=== PATIENT | female | born 1945 | race Two or more races ===

== ENCOUNTER 2022-07-01 15:20 | Inpatient (IN) | payer MEDICAID ==
[~2022-07-01] VITALS: Ht 165.1 cm; Wt 101.8 kg
[~2022-07-01 15:20] MED LIST: ETOMIDATE 2MG/ML 10ML VIAL IV ONE; SUCCINYLCHOLINE CHLORIDE 200MG/10ML IV ONE
[2022-07-01] MEDS ORDERED: SODIUM CHLORIDE 0.9% 1,000 ML IV ONE (15:45)
[2022-07-01 15:53] LABS: BASOPHILS % 0.3 % (0.0-2.0); EOSINOPHILS % 0.8 % (0.0-5.0); HEMATOCRIT. 37.8 % (36.0-48.0); HEMOGLOBIN. 12.2 g/dL (12.0-16.0); LYMPHOCYTES % 12.4 % (20.0-50.0); MEAN CORPUSCULAR VOLUME 99.1 fL (81.0-99.0); MEAN PLATELET VOLUME 8.5 fl (7.4-10.4); NEUTROPHILS % 74.5 % (40.0-76.0); PLATELET 163 x1000/uL (130-400); RED BLOOD CELL COUNT 3.82 mill/uL (4.2-5.4); RED CELL DISTRIBUTION WIDTH 14.4 % (11.6-14.6)
[2022-07-01 16:10] LABS: CHLORIDE 95 mEq/L (98-107)
[2022-07-01] MEDS ORDERED: MIDAZOLAM HCL 100 MG in DEXT 5% WATER 80 ML IV ONE (17:00)
[2022-07-01] MEDS ORDERED: VANCOMYCIN 1G PREMIX 200 ML IV ONE (17:00)
[2022-07-01] MEDS ORDERED: PIPERACILLIN/TAZ 3.375G PREMIX 50 ML IV ONE (17:00)
[2022-07-01] MEDS ORDERED: ONDANSETRON HCL 4MG/2ML INJ IV ONE ×2 (17:00→18:00)
[2022-07-01] MEDS ORDERED: SUCCINYLCHOLINE CHLORIDE 200MG/10ML IV ONE (17:00)
[2022-07-01] MEDS ORDERED: ETOMIDATE 2MG/ML 10ML VIAL IV ONE (17:00)
[2022-07-01] MEDS ORDERED: MIDAZOLAM HCL 2 MG/2 ML VIAL IV ONE (17:00)
[2022-07-01] MEDS ORDERED: MIDAZOLAM HCL 100 MG in SODIUM CHLORIDE 0.9% 100 ML IV PRN (17:15)
[2022-07-01] MEDS ORDERED: MIDAZOLAM HCL 100 MG in DEXT 5% WATER 80 ML IV PRN (17:15)
[2022-07-01] MEDS ORDERED: PANTOPRAZOLE SODIUM 40 MG/VIAL IV ONE (18:00)
[2022-07-01 18:06] LABS: BG BASE EXCESS 12.5 mmol/L (-2.0-2.0); BG CARBOXYHEMOGLOBIN 1.1 % (0.5-1.5); BG DEOXYHEMOGLOBIN 1.2 % (0.0-5.0); BG FRACTION INSPIRED OXYGEN 100; BG HCO3 ACT 40.6 mmol/L (22.0-26.0); BG METHEMOGLOBIN 0.4 % (0.0-1.5); BG OXYGEN SATURATION 98.8 % (92.0-98.5); BG OXYHEMOGLOBIN 97.3 % (94.0-97.0); BG PCO2 71.4 mmHg (35.0-45.0); BG PH 7.373 (7.350-7.450); BG SAMPLE SITE RIGHT RADIAL; BG TOTAL HEMOGLOBIN 12.3 g/dL (12.0-18.0); BG VENT MODE VENT - AC
[2022-07-01] MEDS ORDERED: ONDANSETRON HCL 4MG/2ML INJ IV PRN (19:00)
[2022-07-01] MEDS ORDERED: IPRATROPIUM/ALBUTEROL 0.5-3(2.5)MG/3ML NEB HHN PRN (19:00)
[2022-07-01] MEDS ORDERED: NOREPINEPHRINE 8 MG in DEXTROSE 5% WATER 250 ML IV PRN (19:00)
[2022-07-01] MEDS ORDERED: DIPHENHYDRAMINE 50MG/ML VIAL IV PRN (19:00)
[2022-07-01] MEDS ORDERED: NOREPINEPHRINE 8MG/250ML PMX 250 ML IV ONE (19:00)
[2022-07-01] MEDS: SODIUM CHLORIDE 0.9% 1,000 ML IV SCH ×2 (19:26→23:31)
[2022-07-01] MEDS ORDERED: FENTANYL 2500MCG/250ML PMX 250 ML IV ONE (20:30)
[2022-07-01] MEDS ORDERED: VANCOMYCIN 1G PREMIX 200 ML IV SCH (22:00)
[2022-07-01] MEDS ORDERED: FENTANYL 2500MCG/250ML PMX 250 ML IV NR (23:45)
[2022-07-02] VITALS (44 sets, daily range): BP systolic 85–146; BP diastolic 39–67
[2022-07-02] MEDS ORDERED: PIPERACILLIN/TAZOBACTAM 3.375 G in DEXTROSE 5% WATER 50 ML IV SCH ×2
[2022-07-02 06:00] LABS: BASOPHILS % 0.1 % (0.0-2.0); EOSINOPHILS % 0.4 % (0.0-5.0); HEMATOCRIT. 35.3 % (36.0-48.0); HEMOGLOBIN. 11.4 g/dL (12.0-16.0); LYMPHOCYTES % 9.2 % (20.0-50.0); MEAN CORPUSCULAR HEMOGLOBIN 31.2 pg (28.0-32.0); MEAN CORPUSCULAR VOLUME 96.9 fL (81.0-99.0); MEAN PLATELET VOLUME 9.2 fl (7.4-10.4); MONOCYTES % 11.4 % (2.0-8.0); NEUTROPHILS % 78.9 % (40.0-76.0); PLATELET 181 x1000/uL (130-400); RED BLOOD CELL COUNT 3.64 mill/uL (4.2-5.4); RED CELL DISTRIBUTION WIDTH 13.7 % (11.6-14.6)
[2022-07-02 06:14] LABS: CHLORIDE 96 mEq/L (98-107)
[2022-07-02] MEDS ORDERED: PIPERACILLIN/TAZ 3.375G PREMIX 50 ML IV SCH (07:28)
[2022-07-02 09:02] LABS: BG BASE EXCESS 10.7 mmol/L (-2.0-2.0); BG CARBOXYHEMOGLOBIN 0.4 % (0.5-1.5); BG DEOXYHEMOGLOBIN 5.3 % (0.0-5.0); BG HCO3 ACT 34.9 mmol/L (22.0-26.0); BG METHEMOGLOBIN 0.3 % (0.0-1.5); BG OXYGEN SATURATION 94.7 % (92.0-98.5); BG PCO2 44.3 mmHg (35.0-45.0); BG PH 7.514 (7.350-7.450); BG PO2 60.8 mmHg (75.0-100.0); BG SAMPLE SITE RIGHT RADIAL; BG TOTAL HEMOGLOBIN 12.5 g/dL (12.0-18.0); BG VENT MODE VENT - AC
[2022-07-02 09:28] LABS: CLARITY URINE TURBID (CLEAR); COLOR URINE DARK YELLOW (YELLOW); KETONES URINE NEGATIVE (NEGATIVE); LEUKOCYTE ESTERASE URINE 1+ (NEGATIVE); NITRITE URINE NEGATIVE (NEGATIVE); OCCULT BLOOD URINE 3+ (NEGATIVE); PH URINE 5.5 (4.5-8.0); PROTEIN URINE 2+ (NEGATIVE); SPECIFIC GRAVITY URINE 1.022 (1.005-1.030)
[2022-07-02] MEDS ORDERED: FENTANYL CITRATE/PF 2,500 MCG in SODIUM CHLORIDE 0.9% 200 ML IV PRN (11:45)
[2022-07-02] MEDS ORDERED: MIDAZOLAM 100MG/100ML PMX 100 ML IV PRN (11:45)
[2022-07-02] MEDS ORDERED: NOREPINEPHRINE 8MG/250ML PMX 250 ML IV PRN (12:30)
[2022-07-02] MEDS: MIDAZOLAM HCL 100 MG in SODIUM CHLORIDE 0.9% 100 ML IV PRN (12:35)
[2022-07-02] MEDS ORDERED: NOREPINEPHRINE 8 MG in DEXTROSE 5% WATER 250 ML IV PRN (13:00)
[2022-07-02] MEDS: PIPERACILLIN/TAZOBACTAM 3.375G in DEXT 5% WATER 50ML IV SCH ×2 (13:38→22:44)
[2022-07-02] MEDS: AZITHROMYCIN 500 MG in DEXT 5% WATER 250 ML IV SCH (13:39)
[2022-07-02] MEDS: ACETYLCYSTEINE 200MG/ML 20% VIAL 4ML INH SCH (13:55)
[2022-07-02] MEDS: IPRATROPIUM/ALBUTEROL 0.5-3(2.5)MG/3ML NEB HHN SCH ×2 (13:55→20:12)
[2022-07-02] MEDS: SODIUM CHLORIDE 3% FOR INH 4ML UD NEB INH SCH (13:55)
[2022-07-02] MEDS: SODIUM CHLORIDE 0.9% 1,000 ML IV SCH (16:33)
[2022-07-02 19:04] LABS: TOTAL IRON BINDING CAPACITY 232 ug/dL (250-450)
[2022-07-02 19:11] LABS: T4 FREE 1.22 ng/dL (0.76-1.46)
[2022-07-02 19:26] LABS: FERRITIN 403 ng/mL (10-291)
[2022-07-02 19:35] LABS: VITAMIN B12 SERUM > 2000.0 pg/mL (211-911)
[2022-07-02] MEDS: PANTOPRAZOLE SODIUM 40 MG/VIAL IV SCH (20:30)
[2022-07-02] MEDS ORDERED: VANCOMYCIN 1G PREMIX 200 ML IV SCH (22:00)
[2022-07-03] VITALS (98 sets, daily range): BP systolic 82–140; BP diastolic 33–80
[2022-07-03] MEDS: IPRATROPIUM/ALBUTEROL 0.5-3(2.5)MG/3ML NEB HHN SCH ×3 (01:54→20:16)
[2022-07-03] MEDS: ACETYLCYSTEINE 200MG/ML 20% VIAL 4ML INH SCH ×2 (01:54→08:36)
[2022-07-03] MEDS: MIDAZOLAM HCL 100 MG in SODIUM CHLORIDE 0.9% 100 ML IV PRN (03:02)
[2022-07-03] MEDS: SODIUM CHLORIDE 0.9% 1,000 ML IV SCH (03:06)
[2022-07-03 05:16] LABS: BASOPHILS % 0.2 % (0.0-2.0); EOSINOPHILS % 0.9 % (0.0-5.0); HEMATOCRIT. 30.8 % (36.0-48.0); HEMOGLOBIN. 10.2 g/dL (12.0-16.0); LYMPHOCYTES % 18.7 % (20.0-50.0); MEAN CORPUSCULAR HEMOGLOBIN 31.8 pg (28.0-32.0); MEAN CORPUSCULAR VOLUME 95.6 fL (81.0-99.0); MEAN PLATELET VOLUME 8.8 fl (7.4-10.4); MONOCYTES % 9.4 % (2.0-8.0); NEUTROPHILS % 70.8 % (40.0-76.0); PLATELET 174 x1000/uL (130-400); RED BLOOD CELL COUNT 3.23 mill/uL (4.2-5.4); RED CELL DISTRIBUTION WIDTH 14.4 % (11.6-14.6)
[2022-07-03 05:35] LABS: INR 1.1; PROTHROMBIN TIME 11.4 sec (9.6-11.0)
[2022-07-03] MEDS: PIPERACILLIN/TAZOBACTAM 3.375G in DEXT 5% WATER 50ML IV SCH ×3 (05:42→21:00)
[2022-07-03] MEDS: PANTOPRAZOLE SODIUM 40 MG/VIAL IV SCH ×2 (08:15→21:00)
[2022-07-03] MEDS ORDERED: MULT-1116 PO (08:37)
[2022-07-03] MEDS ORDERED: FURO20TA4 MT (08:37)
[2022-07-03] MEDS ORDERED: GABA-529 PO (08:37)
[2022-07-03] MEDS ORDERED: NYST15PO4 TP (08:38)
[2022-07-03] MEDS ORDERED: POLY17PO43 MT (08:40)
[2022-07-03] MEDS ORDERED: TIOT18CA3 IH (08:40)
[2022-07-03 08:52] LABS: BG BASE EXCESS 5.2 mmol/L (-2.0-2.0); BG CARBOXYHEMOGLOBIN 0.2 % (0.5-1.5); BG DEOXYHEMOGLOBIN 5.7 % (0.0-5.0); BG FRACTION INSPIRED OXYGEN 70; BG HCO3 ACT 29.1 mmol/L (22.0-26.0); BG METHEMOGLOBIN 0.3 % (0.0-1.5); BG OXYGEN SATURATION 94.3 % (92.0-98.5); BG OXYHEMOGLOBIN 93.8 % (94.0-97.0); BG PCO2 40.1 mmHg (35.0-45.0); BG PH 7.479 (7.350-7.450); BG PO2 64.9 mmHg (75.0-100.0); BG SAMPLE SITE RIGHT RADIAL; BG TOTAL HEMOGLOBIN 10.8 g/dL (12.0-18.0); BG VENT MODE VENT - AC
[2022-07-03] MEDS: FUROSEMIDE 20MG/2ML VIAL IVP SCH (10:24)
[2022-07-03] MEDS: DEXT 5%/0.9% NACL 1,000 ML IV SCH ×2 (10:25→20:23)
[2022-07-03] MEDS: AZITHROMYCIN 500 MG in DEXT 5% WATER 250 ML IV SCH (12:03)
[2022-07-03] MEDS: FENTANYL 2500MCG/250ML PMX 250 ML IV PRN (12:05)
[2022-07-03] MEDS ORDERED: ROCURONIUM BROMIDE 10MG/ML VIAL 5ML IV ONE (12:19)
[2022-07-03] MEDS ORDERED: MIDAZOLAM HCL 5 MG/5 ML VIAL ONE (12:19)
[2022-07-03] MEDS ORDERED: PROPOFOL 200MG/20ML VIAL IV ONE (12:19)
[2022-07-03 13:04] LABS: HEMATOCRIT 30.1 % (36.0-48.0)
[2022-07-04] VITALS (101 sets, daily range): BP systolic 64–163; BP diastolic 24–112
[2022-07-04] MEDS: IPRATROPIUM/ALBUTEROL 0.5-3(2.5)MG/3ML NEB HHN SCH ×4 (00:16→21:04)
[2022-07-04] MEDS: ACETYLCYSTEINE 200MG/ML 20% VIAL 4ML INH SCH ×4 (00:16→14:26)
[2022-07-04 05:17] LABS: CHLORIDE 107 mEq/L (98-107)
[2022-07-04 05:19] LABS: BASOPHILS % 0.3 % (0.0-2.0); EOSINOPHILS % 2.5 % (0.0-5.0); HEMATOCRIT. 29.4 % (36.0-48.0); HEMOGLOBIN. 9.8 g/dL (12.0-16.0); LYMPHOCYTES % 17.4 % (20.0-50.0); MEAN CORPUSCULAR HEMOGLOBIN 32.2 pg (28.0-32.0); MEAN CORPUSCULAR VOLUME 96.2 fL (81.0-99.0); MONOCYTES % 8.1 % (2.0-8.0); NEUTROPHILS % 71.7 % (40.0-76.0); RED BLOOD CELL COUNT 3.06 mill/uL (4.2-5.4); RED CELL DISTRIBUTION WIDTH 14.6 % (11.6-14.6)
[2022-07-04] MEDS: PIPERACILLIN/TAZOBACTAM 3.375G in DEXT 5% WATER 50ML IV SCH ×3 (05:43→21:30)
[2022-07-04] MEDS: DEXT 5%/0.9% NACL 1,000 ML IV SCH ×2 (05:45→15:45)
[2022-07-04 07:06] LABS: MEAN PLATELET VOLUME 9.1 fl (7.4-10.4); PLATELET 180 x1000/uL (130-400)
[2022-07-04] MEDS: FUROSEMIDE 20MG/2ML VIAL IVP SCH (08:36)
[2022-07-04] MEDS: PANTOPRAZOLE SODIUM 40 MG/VIAL IV SCH ×2 (08:36→21:30)
[2022-07-04 08:51] LABS: BG BASE EXCESS 4.7 mmol/L (-2.0-2.0); BG CARBOXYHEMOGLOBIN 0.3 % (0.5-1.5); BG DEOXYHEMOGLOBIN 13.5 % (0.0-5.0); BG HCO3 ACT 31.4 mmol/L (22.0-26.0); BG METHEMOGLOBIN 0.3 % (0.0-1.5); BG OXYGEN SATURATION 86.4 % (92.0-98.5); BG OXYHEMOGLOBIN 85.9 % (94.0-97.0); BG PCO2 57.9 mmHg (35.0-45.0); BG PH 7.352 (7.350-7.450); BG PO2 53.7 mmHg (75.0-100.0); BG SAMPLE SITE RIGHT RADIAL; BG TOTAL HEMOGLOBIN 10.5 g/dL (12.0-18.0); BG VENT MODE VENT - AC
[2022-07-04] MEDS: ACETAMINOPHEN 325MG TABLET PO PRN (11:07)
[2022-07-04] MEDS: AZITHROMYCIN 500 MG in DEXT 5% WATER 250 ML IV SCH (12:27)
[2022-07-04] MEDS: ENOXAPARIN 40MG/0.4ML SYR SUBCUT SCH (15:00)
[2022-07-04] MEDS: MIDAZOLAM HCL 100 MG in SODIUM CHLORIDE 0.9% 100 ML IV PRN (16:58)
[2022-07-04] MEDS: SODIUM CHLORIDE 3% FOR INH 4ML UD NEB INH SCH (18:11)
[2022-07-05] VITALS (91 sets, daily range): BP systolic 79–162; BP diastolic 32–94
[2022-07-05] MEDS: IPRATROPIUM/ALBUTEROL 0.5-3(2.5)MG/3ML NEB HHN SCH ×5 (00:24→20:44)
[2022-07-05] MEDS: ACETYLCYSTEINE 200MG/ML 20% VIAL 4ML INH SCH ×3 (00:24→13:54)
[2022-07-05 05:43] LABS: HEMATOCRIT. 30.9 % (36.0-48.0); HEMOGLOBIN. 10.2 g/dL (12.0-16.0); MEAN CORPUSCULAR HEMOGLOBIN 31.7 pg (28.0-32.0); MEAN CORPUSCULAR VOLUME 96.5 fL (81.0-99.0); MEAN PLATELET VOLUME 10.1 fl (7.4-10.4); RED BLOOD CELL COUNT 3.21 mill/uL (4.2-5.4)
[2022-07-05] MEDS: PIPERACILLIN/TAZOBACTAM 3.375G in DEXT 5% WATER 50ML IV SCH ×3 (05:58→21:04)
[2022-07-05] MEDS: MIDAZOLAM HCL 100 MG in SODIUM CHLORIDE 0.9% 100 ML IV PRN ×2 (05:58→15:26)
[2022-07-05] MEDS: DEXT 5%/0.9% NACL 1,000 ML IV SCH ×2 (05:59→12:56)
[2022-07-05 06:00] LABS: CHLORIDE 105 mEq/L (98-107)
[2022-07-05 07:59] LABS: PLATELET ESTIMATE NORMAL
[2022-07-05 08:00] LABS: PLATELET 211 x1000/uL (130-400); RED CELL DISTRIBUTION WIDTH 14.7 % (11.6-14.6)
[2022-07-05 08:15] LABS: BG BASE EXCESS 3.1 mmol/L (-2.0-2.0); BG CARBOXYHEMOGLOBIN 0.3 % (0.5-1.5); BG DEOXYHEMOGLOBIN 1.7 % (0.0-5.0); BG HCO3 ACT 25.9 mmol/L (22.0-26.0); BG METHEMOGLOBIN 0.2 % (0.0-1.5); BG OXYGEN SATURATION 98.3 % (92.0-98.5); BG OXYHEMOGLOBIN 97.8 % (94.0-97.0); BG PCO2 32.9 mmHg (35.0-45.0); BG PH 7.514 (7.350-7.450); BG SAMPLE SITE RIGHT RADIAL; BG VENT MODE VENT - AC
[2022-07-05] MEDS: FOLIC ACID 1MG TABLET PO SCH (08:41)
[2022-07-05] MEDS: FUROSEMIDE 20MG/2ML VIAL IVP SCH (08:41)
[2022-07-05] MEDS: PANTOPRAZOLE SODIUM 40 MG/VIAL IV SCH ×2 (08:41→21:04)
[2022-07-05] MEDS: FENTANYL 2500MCG/250ML PMX 250 ML IV PRN (09:34)
[2022-07-05] MEDS ORDERED: POTASSIUM CHLORIDE INJ 40 MEQ in DEXT 5% WATER 500 ML IV ONE (12:00)
[2022-07-05] MEDS: AZITHROMYCIN 500 MG in DEXT 5% WATER 250 ML IV SCH (12:56)
[2022-07-05] MEDS: KCL 20MEQ/100ML X 2 FOR TOTAL KCL 40MEQ/200ML IV SCH ×2 (13:08→15:28)
[2022-07-05] MEDS: ENOXAPARIN 40MG/0.4ML SYR SUBCUT SCH (15:28)
[2022-07-05] MEDS: SODIUM CHLORIDE 3% FOR INH 4ML UD NEB INH SCH (17:31)
[2022-07-06] VITALS (96 sets, daily range): BP systolic 74–139; BP diastolic 30–70
[2022-07-06] MEDS: IPRATROPIUM/ALBUTEROL 0.5-3(2.5)MG/3ML NEB HHN SCH ×4 (01:04→20:47)
[2022-07-06] MEDS: ACETYLCYSTEINE 200MG/ML 20% VIAL 4ML INH SCH ×2 (01:05→09:36)
[2022-07-06] MEDS: MIDAZOLAM HCL 100 MG in SODIUM CHLORIDE 0.9% 100 ML IV PRN ×3 (01:55→22:32)
[2022-07-06 05:06] LABS: CHLORIDE 108 mEq/L (98-107)
[2022-07-06] MEDS: PIPERACILLIN/TAZOBACTAM 3.375G in DEXT 5% WATER 50ML IV SCH ×3 (05:10→21:00)
[2022-07-06] MEDS: PANTOPRAZOLE SODIUM 40 MG/VIAL IV SCH ×2 (08:59→21:02)
[2022-07-06] MEDS: FUROSEMIDE 20MG/2ML VIAL IVP SCH (08:59)
[2022-07-06] MEDS: FOLIC ACID 1MG TABLET PO SCH (08:59)
[2022-07-06] MEDS: FENTANYL 2500MCG/250ML PMX 250 ML IV PRN (09:02)
[2022-07-06 09:25] LABS: BG BASE EXCESS 1.7 mmol/L (-2.0-2.0); BG CARBOXYHEMOGLOBIN 0.3 % (0.5-1.5); BG DEOXYHEMOGLOBIN 3.5 % (0.0-5.0); BG FRACTION INSPIRED OXYGEN 60; BG HCO3 ACT 25.4 mmol/L (22.0-26.0); BG METHEMOGLOBIN 0.3 % (0.0-1.5); BG OXYGEN SATURATION 96.5 % (92.0-98.5); BG OXYHEMOGLOBIN 95.9 % (94.0-97.0); BG PCO2 36.3 mmHg (35.0-45.0); BG PH 7.463 (7.350-7.450); BG PO2 85.1 mmHg (75.0-100.0); BG SAMPLE SITE RIGHT RADIAL; BG TOTAL HEMOGLOBIN 10.3 g/dL (12.0-18.0); BG VENT MODE VENT - AC
[2022-07-06] MEDS ORDERED: FUROSEMIDE 40MG/4ML VIAL IVP NR (12:00)
[2022-07-06] MEDS: AZITHROMYCIN 500 MG in DEXT 5% WATER 250 ML IV SCH (13:37)
[2022-07-06] MEDS: ASCORBIC ACID 500 MG TABLET PO SCH ×2 (13:37→18:11)
[2022-07-06] MEDS: FERROUS SULFATE 325MG TABLET PO SCH ×2 (13:38→18:12)
[2022-07-06] MEDS: ENOXAPARIN 40MG/0.4ML SYR SUBCUT SCH (14:56)
[2022-07-06] MEDS: ACETAMINOPHEN 325MG TABLET PO PRN (21:02)
[2022-07-07] VITALS (82 sets, daily range): BP systolic 87–150; BP diastolic 35–79
[2022-07-07] MEDS: IPRATROPIUM/ALBUTEROL 0.5-3(2.5)MG/3ML NEB HHN SCH ×2 (00:59→10:17)
[2022-07-07] MEDS: ACETYLCYSTEINE 200MG/ML 20% VIAL 4ML INH SCH ×3 (01:00→16:20)
[2022-07-07 05:57] LABS: BASOPHILS % 0.6 % (0.0-2.0); EOSINOPHILS % 3.5 % (0.0-5.0); HEMATOCRIT. 30.5 % (36.0-48.0); HEMOGLOBIN. 10.5 g/dL (12.0-16.0); LYMPHOCYTES % 20.8 % (20.0-50.0); MEAN CORPUSCULAR HEMOGLOBIN 32.4 pg (28.0-32.0); MEAN CORPUSCULAR VOLUME 94.4 fL (81.0-99.0); MONOCYTES % 10.9 % (2.0-8.0); NEUTROPHILS % 64.2 % (40.0-76.0); PLATELET 201 x1000/uL (130-400); RED BLOOD CELL COUNT 3.23 mill/uL (4.2-5.4); RED CELL DISTRIBUTION WIDTH 13.9 % (11.6-14.6)
[2022-07-07] MEDS: FERROUS SULFATE 325MG TABLET PO SCH ×2 (06:45→17:12)
[2022-07-07 07:14] LABS: CHLORIDE 101 mEq/L (98-107)
[2022-07-07] MEDS: MIDAZOLAM HCL 100 MG in SODIUM CHLORIDE 0.9% 100 ML IV PRN (07:42)
[2022-07-07 08:19] LABS: BG BASE EXCESS 5.2 mmol/L (-2.0-2.0); BG CARBOXYHEMOGLOBIN 0.5 % (0.5-1.5); BG DEOXYHEMOGLOBIN 5.8 % (0.0-5.0); BG HCO3 ACT 29.3 mmol/L (22.0-26.0); BG METHEMOGLOBIN 0.1 % (0.0-1.5); BG OXYGEN SATURATION 94.2 % (92.0-98.5); BG OXYHEMOGLOBIN 93.6 % (94.0-97.0); BG PCO2 41.2 mmHg (35.0-45.0); BG PO2 71.2 mmHg (75.0-100.0); BG SAMPLE SITE RIGHT RADIAL; BG TOTAL HEMOGLOBIN 10.5 g/dL (12.0-18.0); BG VENT MODE VENT - AC
[2022-07-07] MEDS: FOLIC ACID 1MG TABLET PO SCH (09:50)
[2022-07-07] MEDS: ASCORBIC ACID 500 MG TABLET PO SCH ×2 (09:50→17:12)
[2022-07-07] MEDS: FUROSEMIDE 20MG/2ML VIAL IVP SCH (09:50)
[2022-07-07] MEDS: PANTOPRAZOLE SODIUM 40 MG/VIAL IV SCH ×2 (09:53→21:27)
[2022-07-07] MEDS: DOCUSATE SODIUM SUGAR FREE 100MG/10ML UDC NG SCH ×3 (14:45→17:00)
[2022-07-07] MEDS: POLYETHYLENE GLYCOL 3350 (17GM) 1 DOSE PACK NG SCH (15:51)
[2022-07-07] MEDS: ALBUTEROL (0.083%) 2.5MG/3ML NEB HHN SCH ×2 (16:21→20:20)
[2022-07-07] MEDS: ENOXAPARIN 30MG/0.3ML SYR SUBCUT SCH (17:12)
[2022-07-07] MEDS: ACETAMINOPHEN 325MG TABLET PO PRN (17:29)
[2022-07-07] MEDS: SODIUM CHLORIDE 3% FOR INH 4ML UD NEB INH SCH (18:49)
[2022-07-08] VITALS (52 sets, daily range): BP systolic 91–152; BP diastolic 38–85
[2022-07-08] MEDS: ALBUTEROL (0.083%) 2.5MG/3ML NEB HHN SCH ×6 (00:04→20:13)
[2022-07-08] MEDS: ENOXAPARIN 30MG/0.3ML SYR SUBCUT SCH ×2 (05:32→17:06)
[2022-07-08] MEDS: FERROUS SULFATE 325MG TABLET PO SCH ×2 (05:32→17:06)
[2022-07-08 05:33] LABS: BASOPHILS % 0.5 % (0.0-2.0); HEMATOCRIT. 30.7 % (36.0-48.0); HEMOGLOBIN. 10.8 g/dL (12.0-16.0); LYMPHOCYTES % 14.1 % (20.0-50.0); MEAN CORPUSCULAR HEMOGLOBIN 32.6 pg (28.0-32.0); MEAN CORPUSCULAR VOLUME 92.9 fL (81.0-99.0); MEAN PLATELET VOLUME 9.7 fl (7.4-10.4); MONOCYTES % 9.9 % (2.0-8.0); NEUTROPHILS % 73.5 % (40.0-76.0); PLATELET 313 x1000/uL (130-400); RED BLOOD CELL COUNT 3.31 mill/uL (4.2-5.4); RED CELL DISTRIBUTION WIDTH 13.4 % (11.6-14.6)
[2022-07-08 05:35] LABS: CHLORIDE 100 mEq/L (98-107)
[2022-07-08 08:26] LABS: BG BASE EXCESS 4.5 mmol/L (-2.0-2.0); BG CARBOXYHEMOGLOBIN 0.3 % (0.5-1.5); BG DEOXYHEMOGLOBIN 3.8 % (0.0-5.0); BG FRACTION INSPIRED OXYGEN 60; BG HCO3 ACT 27.6 mmol/L (22.0-26.0); BG METHEMOGLOBIN 0.3 % (0.0-1.5); BG OXYGEN SATURATION 96.2 % (92.0-98.5); BG OXYHEMOGLOBIN 95.6 % (94.0-97.0); BG PCO2 35.6 mmHg (35.0-45.0); BG PH 7.507 (7.350-7.450); BG PO2 77.4 mmHg (75.0-100.0); BG SAMPLE SITE RIGHT RADIAL; BG TOTAL HEMOGLOBIN 11.8 g/dL (12.0-18.0); BG VENT MODE VENT - AC
[2022-07-08] MEDS ORDERED: FUROSEMIDE 20MG/2ML VIAL IVP NR (08:45)
[2022-07-08] MEDS: PANTOPRAZOLE SODIUM 40 MG/VIAL IV SCH ×2 (09:10→21:08)
[2022-07-08] MEDS: ASCORBIC ACID 500 MG TABLET PO SCH ×2 (09:10→17:06)
[2022-07-08] MEDS: FOLIC ACID 1MG TABLET PO SCH (09:10)
[2022-07-08] MEDS: POLYETHYLENE GLYCOL 3350 (17GM) 1 DOSE PACK NG SCH (09:10)
[2022-07-08] MEDS: FUROSEMIDE 20MG/2ML VIAL IVP SCH (09:10)
[2022-07-08] MEDS: DOCUSATE SODIUM SUGAR FREE 100MG/10ML UDC NG SCH ×2 (09:11→17:07)
[2022-07-08] MEDS ORDERED: FLUMAZENIL 0.1 MG/ML 5ML VIAL IV NR (09:30)
[2022-07-08] MEDS ORDERED: NALOXONE HCL 0.4MG/ML VIAL IV PRN (11:30)
[2022-07-08] MEDS ORDERED: POTASSIUM CHLORIDE 20MEQ/PACKET PO NR (12:15)
[2022-07-08] MEDS: MORPHINE SULFATE 2 MG/ML CPJ (NOT FOR IM USE) IV PRN ×2 (12:49→18:24)
[2022-07-08] MEDS ORDERED: BISACODYL 10MG SUPP PR NR (13:45)
[2022-07-08] MEDS: SODIUM CHLORIDE 3% FOR INH 4ML UD NEB INH SCH ×2 (16:12→18:00)
[2022-07-08] MEDS ORDERED: BENA-8 PO (16:34)
[2022-07-09] VITALS (77 sets, daily range): BP systolic 65–175; BP diastolic 25–113
[2022-07-09] MEDS: ALBUTEROL (0.083%) 2.5MG/3ML NEB HHN SCH ×6 (00:06→20:47)
[2022-07-09 04:46] LABS: CHLORIDE 100 mEq/L (98-107)
[2022-07-09 05:18] LABS: BASOPHILS % 0.5 % (0.0-2.0); EOSINOPHILS % 3.1 % (0.0-5.0); HEMATOCRIT. 31.2 % (36.0-48.0); HEMOGLOBIN. 10.4 g/dL (12.0-16.0); LYMPHOCYTES % 17.7 % (20.0-50.0); MEAN CORPUSCULAR HEMOGLOBIN 31.1 pg (28.0-32.0); MEAN CORPUSCULAR VOLUME 93.4 fL (81.0-99.0); MEAN PLATELET VOLUME 9.3 fl (7.4-10.4); MONOCYTES % 12.4 % (2.0-8.0); NEUTROPHILS % 66.3 % (40.0-76.0); PLATELET 343 x1000/uL (130-400); RED BLOOD CELL COUNT 3.34 mill/uL (4.2-5.4); RED CELL DISTRIBUTION WIDTH 13.6 % (11.6-14.6)
[2022-07-09] MEDS: ENOXAPARIN 30MG/0.3ML SYR SUBCUT SCH ×2 (05:57→17:09)
[2022-07-09] MEDS: FERROUS SULFATE 325MG TABLET PO SCH ×2 (06:01→17:09)
[2022-07-09] MEDS ORDERED: NOREPINEPHRINE 32 MG in DEXT 5% WATER 218 ML IV PRN (07:00)
[2022-07-09] MEDS: POLYETHYLENE GLYCOL 3350 (17GM) 1 DOSE PACK NG SCH (08:05)
[2022-07-09] MEDS: FUROSEMIDE 20MG/2ML VIAL IVP SCH ×2 (08:05→17:09)
[2022-07-09] MEDS: PANTOPRAZOLE SODIUM 40 MG/VIAL IV SCH ×2 (08:05→20:44)
[2022-07-09] MEDS: DOCUSATE SODIUM SUGAR FREE 100MG/10ML UDC NG SCH ×2 (08:05→17:00)
[2022-07-09] MEDS: FOLIC ACID 1MG TABLET PO SCH (08:06)
[2022-07-09] MEDS: ASCORBIC ACID 500 MG TABLET PO SCH ×2 (08:06→17:09)
[2022-07-09 08:52] LABS: BG BASE EXCESS 4.5 mmol/L (-2.0-2.0); BG CARBOXYHEMOGLOBIN 0.5 % (0.5-1.5); BG FRACTION INSPIRED OXYGEN 60; BG HCO3 ACT 28.8 mmol/L (22.0-26.0); BG OXYHEMOGLOBIN 96.5 % (94.0-97.0); BG PCO2 41.7 mmHg (35.0-45.0); BG PH 7.457 (7.350-7.450); BG PO2 87.6 mmHg (75.0-100.0); BG SAMPLE SITE RIGHT RADIAL; BG TOTAL HEMOGLOBIN 11.8 g/dL (12.0-18.0); BG VENT MODE VENT - AC
[2022-07-09] MEDS: PROPOFOL 10MG/ML 100ML 100 ML IV PRN ×3 (11:31→20:57)
[2022-07-09] MEDS: SODIUM CHLORIDE 3% FOR INH 4ML UD NEB INH SCH (18:00)
[2022-07-10] VITALS (84 sets, daily range): BP systolic 85–162; BP diastolic 39–109
[2022-07-10] MEDS: ALBUTEROL (0.083%) 2.5MG/3ML NEB HHN SCH ×6 (00:11→20:46)
[2022-07-10] MEDS: PROPOFOL 10MG/ML 100ML 100 ML IV PRN ×2 (04:22→07:29)
[2022-07-10 05:41] LABS: BASOPHILS % 0.8 % (0.0-2.0); EOSINOPHILS % 3.7 % (0.0-5.0); HEMATOCRIT. 32.1 % (36.0-48.0); HEMOGLOBIN. 10.6 g/dL (12.0-16.0); LYMPHOCYTES % 19.2 % (20.0-50.0); MEAN CORPUSCULAR HEMOGLOBIN 31.3 pg (28.0-32.0); MEAN CORPUSCULAR VOLUME 95.1 fL (81.0-99.0); MEAN PLATELET VOLUME 9.2 fl (7.4-10.4); MONOCYTES % 13.9 % (2.0-8.0); NEUTROPHILS % 62.4 % (40.0-76.0); PLATELET 403 x1000/uL (130-400); RED BLOOD CELL COUNT 3.37 mill/uL (4.2-5.4); RED CELL DISTRIBUTION WIDTH 13.3 % (11.6-14.6)
[2022-07-10 05:49] LABS: CHLORIDE 100 mEq/L (98-107)
[2022-07-10] MEDS: FERROUS SULFATE 325MG TABLET PO SCH ×2 (06:34→17:32)
[2022-07-10] MEDS: ENOXAPARIN 30MG/0.3ML SYR SUBCUT SCH ×2 (06:34→17:32)
[2022-07-10] MEDS: ASCORBIC ACID 500 MG TABLET PO SCH ×2 (08:04→17:32)
[2022-07-10] MEDS: FOLIC ACID 1MG TABLET PO SCH (08:04)
[2022-07-10] MEDS: DOCUSATE SODIUM SUGAR FREE 100MG/10ML UDC NG SCH ×2 (08:04→16:41)
[2022-07-10] MEDS: PANTOPRAZOLE SODIUM 40 MG/VIAL IV SCH ×2 (08:04→21:01)
[2022-07-10] MEDS: POLYETHYLENE GLYCOL 3350 (17GM) 1 DOSE PACK NG SCH (08:04)
[2022-07-10] MEDS: FUROSEMIDE 20MG/2ML VIAL IVP SCH ×2 (08:05→17:32)
[2022-07-10 08:12] LABS: BG BASE EXCESS 6.9 mmol/L (-2.0-2.0); BG CARBOXYHEMOGLOBIN 0.3 % (0.5-1.5); BG DEOXYHEMOGLOBIN 4.4 % (0.0-5.0); BG HCO3 ACT 32.8 mmol/L (22.0-26.0); BG METHEMOGLOBIN 0.3 % (0.0-1.5); BG OXYGEN SATURATION 95.6 % (92.0-98.5); BG PCO2 52.8 mmHg (35.0-45.0); BG PH 7.411 (7.350-7.450); BG SAMPLE SITE RIGHT RADIAL; BG TOTAL HEMOGLOBIN 11.7 g/dL (12.0-18.0); BG VENT MODE VENT - AC
[2022-07-10 10:29] LABS: BG BASE EXCESS 5.4 mmol/L (-2.0-2.0); BG CARBOXYHEMOGLOBIN 0.3 % (0.5-1.5); BG DEOXYHEMOGLOBIN 6.6 % (0.0-5.0); BG FRACTION INSPIRED OXYGEN 50; BG HCO3 ACT 32.1 mmol/L (22.0-26.0); BG METHEMOGLOBIN 0.3 % (0.0-1.5); BG OXYGEN SATURATION 93.4 % (92.0-98.5); BG OXYHEMOGLOBIN 92.8 % (94.0-97.0); BG PCO2 57.8 mmHg (35.0-45.0); BG PH 7.363 (7.350-7.450); BG PO2 72.9 mmHg (75.0-100.0); BG SAMPLE SITE LEFT RADIAL; BG TOTAL HEMOGLOBIN 11.5 g/dL (12.0-18.0); BG VENT MODE VENT - CPAP
[2022-07-11] VITALS (39 sets, daily range): BP systolic 108–166; BP diastolic 48–93
[2022-07-11] MEDS: ALBUTEROL (0.083%) 2.5MG/3ML NEB HHN SCH ×7 (00:34→23:32)
[2022-07-11] MEDS: SODIUM CHLORIDE 3% FOR INH 4ML UD NEB INH SCH ×2 (00:34→08:07)
[2022-07-11] MEDS: FERROUS SULFATE 325MG TABLET PO SCH ×2 (05:10→16:29)
[2022-07-11] MEDS: ENOXAPARIN 30MG/0.3ML SYR SUBCUT SCH ×2 (05:11→17:01)
[2022-07-11 05:37] LABS: BASOPHILS % 0.3 % (0.0-2.0); HEMATOCRIT. 31.7 % (36.0-48.0); HEMOGLOBIN. 10.4 g/dL (12.0-16.0); LYMPHOCYTES % 11.9 % (20.0-50.0); MEAN CORPUSCULAR HEMOGLOBIN 30.9 pg (28.0-32.0); MEAN CORPUSCULAR VOLUME 94.5 fL (81.0-99.0); MEAN PLATELET VOLUME 8.7 fl (7.4-10.4); MONOCYTES % 11.1 % (2.0-8.0); NEUTROPHILS % 74.7 % (40.0-76.0); PLATELET 453 x1000/uL (130-400); RED BLOOD CELL COUNT 3.35 mill/uL (4.2-5.4); RED CELL DISTRIBUTION WIDTH 13.7 % (11.6-14.6)
[2022-07-11 05:38] LABS: CHLORIDE 101 mEq/L (98-107)
[2022-07-11] MEDS: ASCORBIC ACID 500 MG TABLET PO SCH ×2 (08:00→16:29)
[2022-07-11] MEDS: FOLIC ACID 1MG TABLET PO SCH (08:00)
[2022-07-11] MEDS: FUROSEMIDE 20MG/2ML VIAL IVP SCH ×2 (08:00→16:29)
[2022-07-11] MEDS: PANTOPRAZOLE SODIUM 40 MG/VIAL IV SCH ×2 (08:00→21:13)
[2022-07-11] MEDS: DOCUSATE SODIUM SUGAR FREE 100MG/10ML UDC NG SCH (08:00)
[2022-07-11] MEDS: POLYETHYLENE GLYCOL 3350 (17GM) 1 DOSE PACK NG SCH (08:01)
[2022-07-11 08:55] LABS: BG BASE EXCESS 7.7 mmol/L (-2.0-2.0); BG CARBOXYHEMOGLOBIN 0.3 % (0.5-1.5); BG DEOXYHEMOGLOBIN 5.5 % (0.0-5.0); BG FRACTION INSPIRED OXYGEN 40; BG HCO3 ACT 34.3 mmol/L (22.0-26.0); BG METHEMOGLOBIN 0.1 % (0.0-1.5); BG OXYGEN SATURATION 94.5 % (92.0-98.5); BG OXYHEMOGLOBIN 94.1 % (94.0-97.0); BG PCO2 59.5 mmHg (35.0-45.0); BG PH 7.379 (7.350-7.450); BG PO2 75.5 mmHg (75.0-100.0); BG SAMPLE SITE RIGHT RADIAL; BG TOTAL HEMOGLOBIN 10.8 g/dL (12.0-18.0); BG VENT MODE NASAL CANNULA
[2022-07-11] MEDS: ACETAMINOPHEN 325MG TABLET PO PRN (13:10)
[2022-07-12] VITALS (15 sets, daily range): BP systolic 106–154; BP diastolic 27–70
[2022-07-12] MEDS: ALBUTEROL (0.083%) 2.5MG/3ML NEB HHN SCH ×5 (04:24→20:42)
[2022-07-12] MEDS: ENOXAPARIN 30MG/0.3ML SYR SUBCUT SCH ×2 (05:31→18:00)
[2022-07-12 06:00] LABS: BASOPHILS % 0.3 % (0.0-2.0); HEMATOCRIT. 30.5 % (36.0-48.0); HEMOGLOBIN. 10.1 g/dL (12.0-16.0); LYMPHOCYTES % 12.3 % (20.0-50.0); MEAN CORPUSCULAR HEMOGLOBIN 31.3 pg (28.0-32.0); MEAN CORPUSCULAR VOLUME 94.9 fL (81.0-99.0); MEAN PLATELET VOLUME 8.6 fl (7.4-10.4); MONOCYTES % 9.7 % (2.0-8.0); NEUTROPHILS % 75.7 % (40.0-76.0); PLATELET 482 x1000/uL (130-400); RED BLOOD CELL COUNT 3.22 mill/uL (4.2-5.4); RED CELL DISTRIBUTION WIDTH 13.2 % (11.6-14.6)
[2022-07-12 06:22] LABS: CHLORIDE 99 mEq/L (98-107)
[2022-07-12] MEDS: ASCORBIC ACID 500 MG TABLET PO SCH ×2 (09:57→18:42)
[2022-07-12] MEDS: FUROSEMIDE 20MG/2ML VIAL IVP SCH ×2 (09:57→18:42)
[2022-07-12] MEDS: PANTOPRAZOLE SODIUM 40 MG/VIAL IV SCH ×2 (09:57→20:56)
[2022-07-12] MEDS: FOLIC ACID 1MG TABLET PO SCH (09:57)
[2022-07-12] MEDS: FERROUS SULFATE 325MG TABLET PO SCH ×2 (09:57→18:44)
[2022-07-12] MEDS ORDERED: IPRATROPIUM BROMIDE (0.02%) 0.5MG/2.5ML NEB HHN PRN (17:30)
[2022-07-12] MEDS ORDERED: ALBUTEROL (0.083%) 2.5MG/3ML NEB HHN PRN (17:30)
[2022-07-12] MEDS ORDERED: IPRATROPIUM/ALBUTEROL 0.5-3(2.5)MG/3ML NEB HHN PRN (17:30)
[2022-07-12] MEDS ORDERED: IPRATROPIUM/ALBUTEROL 0.5-3(2.5)MG/3ML NEB HHN SCH (20:00)
[2022-07-12] MEDS: IPRATROPIUM BROMIDE (0.02%) 0.5MG/2.5ML NEB HHN SCH (20:42)
[2022-07-13] VITALS (11 sets, daily range): BP systolic 118–166; BP diastolic 47–110
[2022-07-13] MEDS: IPRATROPIUM BROMIDE (0.02%) 0.5MG/2.5ML NEB HHN SCH ×6 (00:24→20:45)
[2022-07-13] MEDS: ALBUTEROL (0.083%) 2.5MG/3ML NEB HHN SCH ×6 (00:24→20:45)
[2022-07-13] MEDS: ACETYLCYSTEINE 200MG/ML 20% VIAL 4ML INH SCH ×3 (00:24→16:10)
[2022-07-13] MEDS: ENOXAPARIN 30MG/0.3ML SYR SUBCUT SCH ×2 (05:36→18:00)
[2022-07-13] MEDS: CLONIDINE 0.1MG TABLET PO PRN ×2 (06:09→06:15)
[2022-07-13 06:57] LABS: BASOPHILS % 0.7 % (0.0-2.0); EOSINOPHILS % 1.3 % (0.0-5.0); HEMATOCRIT. 32.6 % (36.0-48.0); HEMOGLOBIN. 10.8 g/dL (12.0-16.0); LYMPHOCYTES % 13.2 % (20.0-50.0); MEAN CORPUSCULAR HEMOGLOBIN 31.3 pg (28.0-32.0); MEAN CORPUSCULAR VOLUME 94.6 fL (81.0-99.0); MEAN PLATELET VOLUME 8.4 fl (7.4-10.4); NEUTROPHILS % 74.8 % (40.0-76.0); PLATELET 537 x1000/uL (130-400); RED BLOOD CELL COUNT 3.45 mill/uL (4.2-5.4); RED CELL DISTRIBUTION WIDTH 13.5 % (11.6-14.6)
[2022-07-13 07:54] LABS: CHLORIDE 95 mEq/L (98-107)
[2022-07-13] MEDS: FERROUS SULFATE 325MG TABLET PO SCH ×2 (08:00→18:00)
[2022-07-13 08:27] LABS: BG BASE EXCESS 15.5 mmol/L (-2.0-2.0); BG CARBOXYHEMOGLOBIN 0.4 % (0.5-1.5); BG FRACTION INSPIRED OXYGEN 70; BG HCO3 ACT 43.7 mmol/L (22.0-26.0); BG METHEMOGLOBIN 0.3 % (0.0-1.5); BG OXYHEMOGLOBIN 93.3 % (94.0-97.0); BG PCO2 75.9 mmHg (35.0-45.0); BG PH 7.378 (7.350-7.450); BG PO2 71.5 mmHg (75.0-100.0); BG SAMPLE SITE RIGHT RADIAL; BG TOTAL HEMOGLOBIN 11.1 g/dL (12.0-18.0); BG TOTAL RESPIRATORY RATE 24 b/min; BG VENT MODE MASK - BIPAP
[2022-07-13] MEDS: PANTOPRAZOLE SODIUM 40 MG/VIAL IV SCH ×2 (09:00→23:03)
[2022-07-13] MEDS: ASCORBIC ACID 500 MG TABLET PO SCH ×2 (09:00→16:40)
[2022-07-13] MEDS: FOLIC ACID 1MG TABLET PO SCH (09:00)
[2022-07-13] MEDS: HYDRALAZINE 20MG/ML VIAL IV SCH ×2 (18:00→23:04)
[2022-07-14] VITALS (12 sets, daily range): BP systolic 107–167; BP diastolic 47–96
[2022-07-14] MEDS: IPRATROPIUM BROMIDE (0.02%) 0.5MG/2.5ML NEB HHN SCH ×6 (00:52→21:36)
[2022-07-14] MEDS: ACETYLCYSTEINE 200MG/ML 20% VIAL 4ML INH SCH ×3 (00:52→17:13)
[2022-07-14] MEDS: ALBUTEROL (0.083%) 2.5MG/3ML NEB HHN SCH ×6 (00:52→21:36)
[2022-07-14] MEDS: HYDRALAZINE 20MG/ML VIAL IV SCH (06:00)
[2022-07-14] MEDS: ENOXAPARIN 30MG/0.3ML SYR SUBCUT SCH ×2 (06:05→17:27)
[2022-07-14 06:28] LABS: BASOPHILS % 0.5 % (0.0-2.0); EOSINOPHILS % 1.9 % (0.0-5.0); HEMATOCRIT. 32.6 % (36.0-48.0); HEMOGLOBIN. 10.8 g/dL (12.0-16.0); LYMPHOCYTES % 15.2 % (20.0-50.0); MEAN CORPUSCULAR HEMOGLOBIN 31.4 pg (28.0-32.0); MEAN CORPUSCULAR VOLUME 94.8 fL (81.0-99.0); MEAN PLATELET VOLUME 8.5 fl (7.4-10.4); MONOCYTES % 10.4 % (2.0-8.0); PLATELET 522 x1000/uL (130-400); RED BLOOD CELL COUNT 3.44 mill/uL (4.2-5.4); RED CELL DISTRIBUTION WIDTH 13.7 % (11.6-14.6)
[2022-07-14 07:14] LABS: CHLORIDE 97 mEq/L (98-107)
[2022-07-14] MEDS: FERROUS SULFATE 325MG TABLET PO SCH ×2 (08:00→17:46)
[2022-07-14] MEDS: ASCORBIC ACID 500 MG TABLET PO SCH ×2 (08:37→17:26)
[2022-07-14] MEDS: FOLIC ACID 1MG TABLET PO SCH (08:37)
[2022-07-14] MEDS: PANTOPRAZOLE SODIUM 40 MG/VIAL IV SCH ×2 (08:53→21:22)
[2022-07-14] MEDS: FUROSEMIDE 20MG/2ML VIAL IVP SCH (08:54)
[2022-07-14 09:57] LABS: BG BASE EXCESS 13.5 mmol/L (-2.0-2.0); BG CARBOXYHEMOGLOBIN 0.8 % (0.5-1.5); BG DEOXYHEMOGLOBIN 8.2 % (0.0-5.0); BG HCO3 ACT 41.6 mmol/L (22.0-26.0); BG METHEMOGLOBIN 0.3 % (0.0-1.5); BG OXYGEN SATURATION 91.7 % (92.0-98.5); BG OXYHEMOGLOBIN 90.7 % (94.0-97.0); BG PH 7.404 (7.350-7.450); BG PO2 63.2 mmHg (75.0-100.0); BG SAMPLE SITE RIGHT RADIAL; BG TOTAL HEMOGLOBIN 14.2 g/dL (12.0-18.0); BG VENT MODE MASK - BIPAP
[2022-07-14] MEDS ORDERED: HYDRALAZINE 20MG/ML VIAL IV PRN (14:00)
[2022-07-14] MEDS: METHYLPREDNISOLONE SOD SUCC 40 MG/ML VIAL IV SCH ×2 (14:25→21:22)
[2022-07-15] VITALS (13 sets, daily range): BP systolic 89–149; BP diastolic 29–91
[2022-07-15] MEDS: ACETYLCYSTEINE 200MG/ML 20% VIAL 4ML INH SCH ×4 (01:51→23:40)
[2022-07-15] MEDS: IPRATROPIUM BROMIDE (0.02%) 0.5MG/2.5ML NEB HHN SCH ×7 (01:51→23:40)
[2022-07-15] MEDS: ALBUTEROL (0.083%) 2.5MG/3ML NEB HHN SCH ×7 (01:52→23:40)
[2022-07-15] MEDS: ENOXAPARIN 30MG/0.3ML SYR SUBCUT SCH ×2 (05:40→17:39)
[2022-07-15] MEDS: METHYLPREDNISOLONE SOD SUCC 40 MG/ML VIAL IV SCH ×3 (05:40→21:04)
[2022-07-15 06:32] LABS: BASOPHILS % 0.2 % (0.0-2.0); HEMATOCRIT. 31.9 % (36.0-48.0); HEMOGLOBIN. 10.8 g/dL (12.0-16.0); LYMPHOCYTES % 10.9 % (20.0-50.0); MEAN CORPUSCULAR HEMOGLOBIN 31.9 pg (28.0-32.0); MEAN CORPUSCULAR VOLUME 94.3 fL (81.0-99.0); MEAN PLATELET VOLUME 8.5 fl (7.4-10.4); NEUTROPHILS % 84.9 % (40.0-76.0); PLATELET 514 x1000/uL (130-400); RED BLOOD CELL COUNT 3.39 mill/uL (4.2-5.4); RED CELL DISTRIBUTION WIDTH 13.2 % (11.6-14.6)
[2022-07-15 07:24] LABS: CHLORIDE 99 mEq/L (98-107)
[2022-07-15 08:24] LABS: BG BASE EXCESS 11.6 mmol/L (-2.0-2.0); BG CARBOXYHEMOGLOBIN 0.2 % (0.5-1.5); BG DEOXYHEMOGLOBIN 7.9 % (0.0-5.0); BG FRACTION INSPIRED OXYGEN 70; BG HCO3 ACT 37.9 mmol/L (22.0-26.0); BG METHEMOGLOBIN 0.1 % (0.0-1.5); BG OXYGEN SATURATION 92.1 % (92.0-98.5); BG OXYHEMOGLOBIN 91.8 % (94.0-97.0); BG PCO2 58.2 mmHg (35.0-45.0); BG PH 7.432 (7.350-7.450); BG PO2 63.1 mmHg (75.0-100.0); BG SAMPLE SITE LEFT RADIAL; BG VENT MODE MASK - BIPAP
[2022-07-15] MEDS: FOLIC ACID 1MG TABLET PO SCH (09:24)
[2022-07-15] MEDS: ASCORBIC ACID 500 MG TABLET PO SCH ×2 (09:24→17:39)
[2022-07-15] MEDS: PANTOPRAZOLE SODIUM 40 MG/VIAL IV SCH ×2 (09:24→21:03)
[2022-07-15] MEDS: FERROUS SULFATE 300MG/5ML UDC PO SCH ×2 (15:23→17:39)
[2022-07-16] VITALS (10 sets, daily range): BP systolic 110–150; BP diastolic 54–76
[2022-07-16] MEDS: ALBUTEROL (0.083%) 2.5MG/3ML NEB HHN SCH ×5 (04:19→21:01)
[2022-07-16] MEDS: IPRATROPIUM BROMIDE (0.02%) 0.5MG/2.5ML NEB HHN SCH ×5 (04:19→21:01)
[2022-07-16] MEDS: METHYLPREDNISOLONE SOD SUCC 40 MG/ML VIAL IV SCH ×3 (05:11→22:15)
[2022-07-16] MEDS: ENOXAPARIN 30MG/0.3ML SYR SUBCUT SCH ×2 (05:11→17:07)
[2022-07-16 07:26] LABS: BG BASE EXCESS 12.5 mmol/L (-2.0-2.0); BG CARBOXYHEMOGLOBIN 0.2 % (0.5-1.5); BG DEOXYHEMOGLOBIN 9.6 % (0.0-5.0); BG HCO3 ACT 39.6 mmol/L (22.0-26.0); BG METHEMOGLOBIN 0.3 % (0.0-1.5); BG OXYGEN SATURATION 90.4 % (92.0-98.5); BG OXYHEMOGLOBIN 89.9 % (94.0-97.0); BG PCO2 65.4 mmHg (35.0-45.0); BG PO2 60.2 mmHg (75.0-100.0); BG SAMPLE SITE RIGHT RADIAL; BG TOTAL HEMOGLOBIN 11.3 g/dL (12.0-18.0); BG VENT MODE MASK - BIPAP
[2022-07-16 07:27] LABS: BASOPHILS % 0.3 % (0.0-2.0); HEMATOCRIT. 34.1 % (36.0-48.0); HEMOGLOBIN. 11.2 g/dL (12.0-16.0); LYMPHOCYTES % 10.2 % (20.0-50.0); MEAN CORPUSCULAR VOLUME 94.3 fL (81.0-99.0); MEAN PLATELET VOLUME 8.4 fl (7.4-10.4); NEUTROPHILS % 83.5 % (40.0-76.0); PLATELET 491 x1000/uL (130-400); RED BLOOD CELL COUNT 3.62 mill/uL (4.2-5.4); RED CELL DISTRIBUTION WIDTH 13.3 % (11.6-14.6)
[2022-07-16] MEDS: ACETYLCYSTEINE 200MG/ML 20% VIAL 4ML INH SCH ×2 (07:54→17:02)
[2022-07-16 08:00] LABS: CHLORIDE 101 mEq/L (98-107)
[2022-07-16] MEDS: FOLIC ACID 1MG TABLET PO SCH (10:01)
[2022-07-16] MEDS: FERROUS SULFATE 300MG/5ML UDC PO SCH ×3 (10:01→17:07)
[2022-07-16] MEDS: ACETAMINOPHEN 325MG TABLET PO PRN (10:01)
[2022-07-16] MEDS: ASCORBIC ACID 500 MG TABLET PO SCH ×2 (10:01→17:07)
[2022-07-16] MEDS: PANTOPRAZOLE SODIUM 40 MG/VIAL IV SCH ×2 (10:01→22:13)
[2022-07-17] VITALS (9 sets, daily range): BP systolic 114–151; BP diastolic 43–77
[2022-07-17] MEDS: IPRATROPIUM BROMIDE (0.02%) 0.5MG/2.5ML NEB HHN SCH ×6 (01:06→20:32)
[2022-07-17] MEDS: ALBUTEROL (0.083%) 2.5MG/3ML NEB HHN SCH ×6 (01:06→20:32)
[2022-07-17] MEDS: ACETYLCYSTEINE 200MG/ML 20% VIAL 4ML INH SCH ×2 (01:07→16:22)
[2022-07-17 06:39] LABS: BASOPHILS % 0.1 % (0.0-2.0); HEMATOCRIT. 34.4 % (36.0-48.0); HEMOGLOBIN. 11.3 g/dL (12.0-16.0); LYMPHOCYTES % 12.1 % (20.0-50.0); MEAN CORPUSCULAR HEMOGLOBIN 31.3 pg (28.0-32.0); MEAN CORPUSCULAR VOLUME 94.9 fL (81.0-99.0); MEAN PLATELET VOLUME 8.7 fl (7.4-10.4); MONOCYTES % 4.8 % (2.0-8.0); PLATELET 444 x1000/uL (130-400); RED BLOOD CELL COUNT 3.62 mill/uL (4.2-5.4); RED CELL DISTRIBUTION WIDTH 13.3 % (11.6-14.6)
[2022-07-17] MEDS: METHYLPREDNISOLONE SOD SUCC 40 MG/ML VIAL IV SCH ×3 (06:42→21:07)
[2022-07-17] MEDS: ENOXAPARIN 30MG/0.3ML SYR SUBCUT SCH ×2 (06:46→18:08)
[2022-07-17 07:13] LABS: CHLORIDE 102 mEq/L (98-107)
[2022-07-17] MEDS: FERROUS SULFATE 300MG/5ML UDC PO SCH ×3 (09:55→18:07)
[2022-07-17] MEDS: PANTOPRAZOLE SODIUM 40 MG/VIAL IV SCH ×2 (09:55→21:07)
[2022-07-17] MEDS: ASCORBIC ACID 500 MG TABLET PO SCH ×2 (09:55→17:00)
[2022-07-17] MEDS: FOLIC ACID 1MG TABLET PO SCH (09:59)
[2022-07-17] MEDS ORDERED: LACTULOSE 20G/30ML UDC PO PRN (15:00)
[2022-07-17] MEDS ORDERED: DOCUSATE SODIUM 250MG CAPSULE PO PRN (15:00)
[2022-07-17 15:52] LABS: BG BASE EXCESS 10.2 mmol/L (-2.0-2.0); BG CARBOXYHEMOGLOBIN 0.1 % (0.5-1.5); BG DEOXYHEMOGLOBIN 1.9 % (0.0-5.0); BG FRACTION INSPIRED OXYGEN 100; BG HCO3 ACT 36.8 mmol/L (22.0-26.0); BG METHEMOGLOBIN 0.2 % (0.0-1.5); BG OXYGEN SATURATION 98.1 % (92.0-98.5); BG OXYHEMOGLOBIN 97.8 % (94.0-97.0); BG PCO2 58.5 mmHg (35.0-45.0); BG PH 7.417 (7.350-7.450); BG PO2 106.8 mmHg (75.0-100.0); BG SAMPLE SITE RIGHT RADIAL; BG TOTAL HEMOGLOBIN 12.9 g/dL (12.0-18.0); BG VENT MODE MASK - BIPAP
[2022-07-18] VITALS (11 sets, daily range): BP systolic 91–138; BP diastolic 49–79
[2022-07-18] MEDS ORDERED: ALBUTEROL (0.083%) 2.5MG/3ML NEB ONE (00:14)
[2022-07-18] MEDS: ALBUTEROL (0.083%) 2.5MG/3ML NEB HHN SCH ×6 (00:17→20:51)
[2022-07-18] MEDS: IPRATROPIUM BROMIDE (0.02%) 0.5MG/2.5ML NEB HHN SCH ×6 (00:17→20:51)
[2022-07-18] MEDS: ACETYLCYSTEINE 200MG/ML 20% VIAL 4ML INH SCH ×3 (00:17→16:07)
[2022-07-18] MEDS: ENOXAPARIN 30MG/0.3ML SYR SUBCUT SCH ×2 (05:41→17:42)
[2022-07-18] MEDS: METHYLPREDNISOLONE SOD SUCC 40 MG/ML VIAL IV SCH ×3 (05:41→22:01)
[2022-07-18] MEDS: FERROUS SULFATE 300MG/5ML UDC PO SCH ×3 (08:58→17:42)
[2022-07-18] MEDS: PANTOPRAZOLE SODIUM 40 MG/VIAL IV SCH ×2 (08:58→22:01)
[2022-07-18] MEDS: FOLIC ACID 1MG TABLET PO SCH (08:58)
[2022-07-18] MEDS: ASCORBIC ACID 500 MG TABLET PO SCH ×2 (08:58→17:42)
[2022-07-18] MEDS ORDERED: LIDOCAINE HCL/PF 1% 2ML VIAL ONE (10:36)
[2022-07-18 11:14] LABS: BG BASE EXCESS 10.2 mmol/L (-2.0-2.0); BG CARBOXYHEMOGLOBIN 0.5 % (0.5-1.5); BG DEOXYHEMOGLOBIN 1.9 % (0.0-5.0); BG HCO3 ACT 37.3 mmol/L (22.0-26.0); BG METHEMOGLOBIN 0.2 % (0.0-1.5); BG OXYGEN SATURATION 98.1 % (92.0-98.5); BG OXYHEMOGLOBIN 97.4 % (94.0-97.0); BG PCO2 61.8 mmHg (35.0-45.0); BG PH 7.399 (7.350-7.450); BG SAMPLE SITE RIGHT RADIAL; BG TOTAL HEMOGLOBIN 13.3 g/dL (12.0-18.0); BG VENT MODE MASK - BIPAP
[2022-07-19] VITALS (12 sets, daily range): BP systolic 106–151; BP diastolic 44–79
[2022-07-19] MEDS: IPRATROPIUM BROMIDE (0.02%) 0.5MG/2.5ML NEB HHN SCH ×6 (00:29→20:59)
[2022-07-19] MEDS: ACETYLCYSTEINE 200MG/ML 20% VIAL 4ML INH SCH ×3 (00:29→16:45)
[2022-07-19] MEDS: ALBUTEROL (0.083%) 2.5MG/3ML NEB HHN SCH ×5 (00:30→16:46)
[2022-07-19] MEDS: METHYLPREDNISOLONE SOD SUCC 40 MG/ML VIAL IV SCH ×3 (06:01→21:49)
[2022-07-19] MEDS: ENOXAPARIN 30MG/0.3ML SYR SUBCUT SCH ×2 (06:01→17:16)
[2022-07-19 06:28] LABS: CHLORIDE 100 mEq/L (98-107)
[2022-07-19 07:15] LABS: BASOPHILS % 0.1 % (0.0-2.0); HEMATOCRIT. 36.2 % (36.0-48.0); HEMOGLOBIN. 11.7 g/dL (12.0-16.0); LYMPHOCYTES % 11.4 % (20.0-50.0); MEAN CORPUSCULAR HEMOGLOBIN 30.7 pg (28.0-32.0); MEAN CORPUSCULAR VOLUME 95.1 fL (81.0-99.0); MEAN PLATELET VOLUME 9.2 fl (7.4-10.4); MONOCYTES % 5.6 % (2.0-8.0); NEUTROPHILS % 82.9 % (40.0-76.0); PLATELET 352 x1000/uL (130-400); RED BLOOD CELL COUNT 3.81 mill/uL (4.2-5.4); RED CELL DISTRIBUTION WIDTH 13.8 % (11.6-14.6)
[2022-07-19] MEDS: FERROUS SULFATE 300MG/5ML UDC PO SCH ×3 (10:16→17:18)
[2022-07-19] MEDS: PANTOPRAZOLE SODIUM 40 MG/VIAL IV SCH ×2 (10:16→21:49)
[2022-07-19] MEDS: ASCORBIC ACID 500 MG TABLET PO SCH ×2 (10:16→17:16)
[2022-07-19] MEDS: FOLIC ACID 1MG TABLET PO SCH (10:16)
[2022-07-19] MEDS ORDERED: SODIUM POLYSTYRENE SULFONATE 15 G/60 ML BOT PO NR (14:00)
[2022-07-20] VITALS (12 sets, daily range): BP systolic 102–150; BP diastolic 55–80
[2022-07-20] MEDS: IPRATROPIUM BROMIDE (0.02%) 0.5MG/2.5ML NEB HHN SCH ×6 (00:17→20:49)
[2022-07-20] MEDS: ACETYLCYSTEINE 200MG/ML 20% VIAL 4ML INH SCH ×3 (00:17→16:23)
[2022-07-20] MEDS: ALBUTEROL (0.083%) 2.5MG/3ML NEB HHN SCH ×6 (00:17→20:48)
[2022-07-20 06:06] LABS: BASOPHILS % 0.1 % (0.0-2.0); HEMOGLOBIN. 11.6 g/dL (12.0-16.0); MEAN CORPUSCULAR HEMOGLOBIN 31.2 pg (28.0-32.0); MEAN PLATELET VOLUME 9.6 fl (7.4-10.4); MONOCYTES % 3.2 % (2.0-8.0); NEUTROPHILS % 87.7 % (40.0-76.0); PLATELET 289 x1000/uL (130-400); RED BLOOD CELL COUNT 3.72 mill/uL (4.2-5.4); RED CELL DISTRIBUTION WIDTH 13.5 % (11.6-14.6)
[2022-07-20] MEDS: ENOXAPARIN 30MG/0.3ML SYR SUBCUT SCH ×2 (06:57→18:42)
[2022-07-20] MEDS: METHYLPREDNISOLONE SOD SUCC 40 MG/ML VIAL IV SCH ×3 (06:57→21:40)
[2022-07-20 07:55] LABS: CHLORIDE 98 mEq/L (98-107)
[2022-07-20] MEDS: FOLIC ACID 1MG TABLET PO SCH (08:31)
[2022-07-20] MEDS: ASCORBIC ACID 500 MG TABLET PO SCH ×2 (08:31→18:41)
[2022-07-20] MEDS: FERROUS SULFATE 300MG/5ML UDC PO SCH ×3 (08:31→18:41)
[2022-07-20] MEDS: PANTOPRAZOLE SODIUM 40 MG/VIAL IV SCH ×2 (08:34→21:40)
[2022-07-21] VITALS (12 sets, daily range): BP systolic 104–134; BP diastolic 39–69
[2022-07-21] MEDS: IPRATROPIUM BROMIDE (0.02%) 0.5MG/2.5ML NEB HHN SCH ×7 (00:37→23:18)
[2022-07-21] MEDS: ALBUTEROL (0.083%) 2.5MG/3ML NEB HHN SCH ×7 (00:39→23:18)
[2022-07-21] MEDS: ENOXAPARIN 30MG/0.3ML SYR SUBCUT SCH ×2 (05:12→17:33)
[2022-07-21] MEDS: METHYLPREDNISOLONE SOD SUCC 40 MG/ML VIAL IV SCH ×3 (05:12→20:44)
[2022-07-21 05:40] LABS: BASOPHILS % 0.1 % (0.0-2.0); EOSINOPHILS % 0.1 % (0.0-5.0); HEMATOCRIT. 35.3 % (36.0-48.0); HEMOGLOBIN. 11.7 g/dL (12.0-16.0); LYMPHOCYTES % 9.8 % (20.0-50.0); MEAN CORPUSCULAR VOLUME 93.8 fL (81.0-99.0); MEAN PLATELET VOLUME 9.8 fl (7.4-10.4); MONOCYTES % 4.4 % (2.0-8.0); NEUTROPHILS % 85.6 % (40.0-76.0); PLATELET 249 x1000/uL (130-400); RED BLOOD CELL COUNT 3.77 mill/uL (4.2-5.4); RED CELL DISTRIBUTION WIDTH 13.4 % (11.6-14.6)
[2022-07-21] MEDS: ACETYLCYSTEINE 200MG/ML 20% VIAL 4ML INH SCH ×3 (07:56→16:58)
[2022-07-21 08:29] LABS: CHLORIDE 96 mEq/L (98-107)
[2022-07-21] MEDS: PANTOPRAZOLE SODIUM 40 MG/VIAL IV SCH ×2 (09:57→20:45)
[2022-07-21] MEDS: FERROUS SULFATE 300MG/5ML UDC PO SCH ×3 (09:57→17:32)
[2022-07-21] MEDS: ASCORBIC ACID 500 MG TABLET PO SCH ×2 (09:57→17:32)
[2022-07-21] MEDS: FOLIC ACID 1MG TABLET PO SCH (09:57)
[2022-07-21] MEDS ORDERED: IPRATROPIUM BROMIDE (0.02%) 0.5MG/2.5ML NEB HHN PRN (12:30)
[2022-07-21] MEDS ORDERED: ALBUTEROL (0.083%) 2.5MG/3ML NEB HHN PRN (12:30)
[2022-07-21] MEDS ORDERED: IPRATROPIUM/ALBUTEROL 0.5-3(2.5)MG/3ML NEB HHN PRN (12:30)
[2022-07-22] VITALS (16 sets, daily range): BP systolic 93–139; BP diastolic 42–81
[2022-07-22] MEDS: IPRATROPIUM BROMIDE (0.02%) 0.5MG/2.5ML NEB HHN SCH ×5 (03:45→20:18)
[2022-07-22] MEDS: ALBUTEROL (0.083%) 2.5MG/3ML NEB HHN SCH ×5 (03:45→20:18)
[2022-07-22] MEDS: ENOXAPARIN 30MG/0.3ML SYR SUBCUT SCH ×2 (05:21→18:26)
[2022-07-22] MEDS: METHYLPREDNISOLONE SOD SUCC 40 MG/ML VIAL IV SCH ×3 (05:21→20:23)
[2022-07-22 06:28] LABS: CHLORIDE 95 mEq/L (98-107)
[2022-07-22 06:29] LABS: BASOPHILS % 0.3 % (0.0-2.0); HEMATOCRIT. 36.3 % (36.0-48.0); HEMOGLOBIN. 12.1 g/dL (12.0-16.0); LYMPHOCYTES % 10.4 % (20.0-50.0); MEAN CORPUSCULAR VOLUME 93.2 fL (81.0-99.0); MEAN PLATELET VOLUME 10.6 fl (7.4-10.4); MONOCYTES % 5.7 % (2.0-8.0); NEUTROPHILS % 83.6 % (40.0-76.0); PLATELET 216 x1000/uL (130-400); RED BLOOD CELL COUNT 3.89 mill/uL (4.2-5.4); RED CELL DISTRIBUTION WIDTH 13.2 % (11.6-14.6)
[2022-07-22 08:23] LABS: BG BASE EXCESS 9.1 mmol/L (-2.0-2.0); BG CARBOXYHEMOGLOBIN 0.3 % (0.5-1.5); BG DEOXYHEMOGLOBIN 2.7 % (0.0-5.0); BG FRACTION INSPIRED OXYGEN 80; BG HCO3 ACT 36.6 mmol/L (22.0-26.0); BG METHEMOGLOBIN 0.3 % (0.0-1.5); BG OXYGEN SATURATION 97.3 % (92.0-98.5); BG OXYHEMOGLOBIN 96.7 % (94.0-97.0); BG PCO2 64.1 mmHg (35.0-45.0); BG PH 7.374 (7.350-7.450); BG PO2 100.8 mmHg (75.0-100.0); BG SAMPLE SITE RIGHT RADIAL; BG TOTAL HEMOGLOBIN 12.8 g/dL (12.0-18.0); BG VENT MODE HIGH FLOW
[2022-07-22] MEDS: ACETYLCYSTEINE 200MG/ML 20% VIAL 4ML INH SCH (09:00)
[2022-07-22] MEDS: PANTOPRAZOLE SODIUM 40 MG/VIAL IV SCH ×2 (09:07→20:17)
[2022-07-22] MEDS: FERROUS SULFATE 300MG/5ML UDC PO SCH ×3 (09:07→18:26)
[2022-07-22] MEDS: FOLIC ACID 1MG TABLET PO SCH (09:07)
[2022-07-22] MEDS: ASCORBIC ACID 500 MG TABLET PO SCH ×2 (09:08→18:26)
[2022-07-22] MEDS: FUROSEMIDE 20MG/2ML VIAL IVP SCH (09:28)
[2022-07-22] MEDS: GUAIFENESIN 600MG ER TABLET PO SCH (20:24)
[2022-07-23] VITALS (12 sets, daily range): BP systolic 114–138; BP diastolic 58–72
[2022-07-23] MEDS: IPRATROPIUM BROMIDE (0.02%) 0.5MG/2.5ML NEB HHN SCH ×4 (02:53→21:23)
[2022-07-23] MEDS: ALBUTEROL (0.083%) 2.5MG/3ML NEB HHN SCH ×3 (02:53→21:23)
[2022-07-23] MEDS: ENOXAPARIN 30MG/0.3ML SYR SUBCUT SCH ×2 (05:48→17:56)
[2022-07-23 06:29] LABS: CHLORIDE 96 mEq/L (98-107)
[2022-07-23 06:54] LABS: BASOPHILS % 0.1 % (0.0-2.0); HEMATOCRIT. 37.1 % (36.0-48.0); HEMOGLOBIN. 12.3 g/dL (12.0-16.0); LYMPHOCYTES % 10.8 % (20.0-50.0); MEAN CORPUSCULAR HEMOGLOBIN 30.8 pg (28.0-32.0); MEAN CORPUSCULAR VOLUME 92.5 fL (81.0-99.0); MEAN PLATELET VOLUME 10.8 fl (7.4-10.4); MONOCYTES % 7.3 % (2.0-8.0); NEUTROPHILS % 81.8 % (40.0-76.0); PLATELET 202 x1000/uL (130-400); RED BLOOD CELL COUNT 4.01 mill/uL (4.2-5.4); RED CELL DISTRIBUTION WIDTH 13.6 % (11.6-14.6)
[2022-07-23] MEDS: METHYLPREDNISOLONE SOD SUCC 40 MG/ML VIAL IV SCH ×2 (08:42→18:00)
[2022-07-23] MEDS: FOLIC ACID 1MG TABLET PO SCH (08:42)
[2022-07-23] MEDS: ASCORBIC ACID 500 MG TABLET PO SCH ×2 (08:42→18:00)
[2022-07-23] MEDS: PANTOPRAZOLE SODIUM 40 MG/VIAL IV SCH ×2 (08:42→20:29)
[2022-07-23] MEDS: FERROUS SULFATE 300MG/5ML UDC PO SCH ×3 (08:43→18:00)
[2022-07-23] MEDS: FUROSEMIDE 20MG/2ML VIAL IVP SCH (08:45)
[2022-07-23] MEDS: GUAIFENESIN 600MG ER TABLET PO SCH ×2 (08:50→20:29)
[2022-07-24] VITALS (10 sets, daily range): BP systolic 103–141; BP diastolic 56–76
[2022-07-24] MEDS: IPRATROPIUM BROMIDE (0.02%) 0.5MG/2.5ML NEB HHN SCH ×4 (01:20→22:09)
[2022-07-24] MEDS: ALBUTEROL (0.083%) 2.5MG/3ML NEB HHN SCH ×4 (01:20→22:09)
[2022-07-24] MEDS: ENOXAPARIN 30MG/0.3ML SYR SUBCUT SCH ×2 (06:07→17:19)
[2022-07-24] MEDS: PANTOPRAZOLE SODIUM 40 MG/VIAL IV SCH ×2 (08:41→21:22)
[2022-07-24] MEDS: GUAIFENESIN 600MG ER TABLET PO SCH ×2 (08:41→21:22)
[2022-07-24] MEDS: METHYLPREDNISOLONE SOD SUCC 40 MG/ML VIAL IV SCH ×2 (08:41→16:47)
[2022-07-24] MEDS: FERROUS SULFATE 300MG/5ML UDC PO SCH ×2 (08:41→12:12)
[2022-07-24] MEDS: FOLIC ACID 1MG TABLET PO SCH (08:41)
[2022-07-24] MEDS: FUROSEMIDE 20MG/2ML VIAL IVP SCH (08:41)
[2022-07-24] MEDS: ASCORBIC ACID 500 MG TABLET PO SCH ×2 (08:41→16:47)
[2022-07-24] MEDS: FERROUS SULFATE 325MG TABLET PO SCH (17:19)
[2022-07-25] VITALS (7 sets, daily range): BP systolic 98–117; BP diastolic 48–61
[2022-07-25] MEDS: ALBUTEROL (0.083%) 2.5MG/3ML NEB HHN SCH ×4 (03:00→21:34)
[2022-07-25] MEDS: IPRATROPIUM BROMIDE (0.02%) 0.5MG/2.5ML NEB HHN SCH ×4 (03:00→21:34)
[2022-07-25] MEDS: ENOXAPARIN 30MG/0.3ML SYR SUBCUT SCH ×2 (06:55→17:14)
[2022-07-25] MEDS: FUROSEMIDE 20MG/2ML VIAL IVP SCH (10:50)
[2022-07-25] MEDS: ASCORBIC ACID 500 MG TABLET PO SCH ×2 (10:50→17:14)
[2022-07-25] MEDS: PANTOPRAZOLE SODIUM 40 MG/VIAL IV SCH ×2 (10:52→21:02)
[2022-07-25] MEDS: METHYLPREDNISOLONE SOD SUCC 40 MG/ML VIAL IV SCH (10:52)
[2022-07-25] MEDS: FERROUS SULFATE 325MG TABLET PO SCH ×3 (10:53→17:14)
[2022-07-25] MEDS: GUAIFENESIN 600MG ER TABLET PO SCH ×2 (10:53→21:02)
[2022-07-25] MEDS: FOLIC ACID 1MG TABLET PO SCH (10:53)
[2022-07-25] MEDS ORDERED: MORPHINE SULFATE 2 MG/ML CPJ (NOT FOR IM USE) IV PRN (11:30)
[2022-07-25] MEDS ORDERED: NALOXONE HCL 0.4MG/ML VIAL IV PRN (17:00)
[2022-07-26] VITALS: BP 125/67
[2022-07-26] MEDS: ALBUTEROL (0.083%) 2.5MG/3ML NEB HHN SCH ×4 (01:17→22:16)
[2022-07-26] MEDS: IPRATROPIUM BROMIDE (0.02%) 0.5MG/2.5ML NEB HHN SCH ×4 (01:17→22:16)
[2022-07-26 04:00] VITALS: BP 115/63
[2022-07-26] MEDS: ENOXAPARIN 30MG/0.3ML SYR SUBCUT SCH ×2 (06:49→17:45)
[2022-07-26 07:26] LABS: BASOPHILS % 0.1 % (0.0-2.0); EOSINOPHILS % 0.4 % (0.0-5.0); HEMATOCRIT. 40.1 % (36.0-48.0); HEMOGLOBIN. 13.3 g/dL (12.0-16.0); LYMPHOCYTES % 16.6 % (20.0-50.0); MEAN CORPUSCULAR HEMOGLOBIN 30.8 pg (28.0-32.0); MEAN CORPUSCULAR VOLUME 92.5 fL (81.0-99.0); MEAN PLATELET VOLUME 10.6 fl (7.4-10.4); MONOCYTES % 7.8 % (2.0-8.0); NEUTROPHILS % 75.1 % (40.0-76.0); PLATELET 205 x1000/uL (130-400); RED BLOOD CELL COUNT 4.34 mill/uL (4.2-5.4); RED CELL DISTRIBUTION WIDTH 13.8 % (11.6-14.6)
[2022-07-26 07:29] LABS: CHLORIDE 93 mEq/L (98-107)
[2022-07-26 08:00] VITALS: BP 111/61
[2022-07-26] MEDS: FERROUS SULFATE 325MG TABLET PO SCH ×3 (08:46→17:44)
[2022-07-26] MEDS: FUROSEMIDE 20MG/2ML VIAL IVP SCH (08:47)
[2022-07-26] MEDS: PANTOPRAZOLE SODIUM 40 MG/VIAL IV SCH ×2 (08:47→20:57)
[2022-07-26] MEDS: GUAIFENESIN 600MG ER TABLET PO SCH ×2 (08:48→20:57)
[2022-07-26] MEDS: FOLIC ACID 1MG TABLET PO SCH (08:48)
[2022-07-26] MEDS: PREDNISONE 20MG TABLET PO SCH (08:48)
[2022-07-26] MEDS: ASCORBIC ACID 500 MG TABLET PO SCH ×2 (08:48→17:45)
[2022-07-26 12:00] VITALS: BP 113/65
[2022-07-26 16:00] VITALS: BP 114/59
[2022-07-26 20:00] VITALS: BP 145/63
[2022-07-27] VITALS (8 sets, daily range): BP systolic 94–110; BP diastolic 51–70
[2022-07-27] MEDS: ALBUTEROL (0.083%) 2.5MG/3ML NEB HHN SCH ×3 (01:50→14:40)
[2022-07-27] MEDS: IPRATROPIUM BROMIDE (0.02%) 0.5MG/2.5ML NEB HHN SCH ×3 (01:50→14:40)
[2022-07-27] MEDS: ENOXAPARIN 30MG/0.3ML SYR SUBCUT SCH (05:14)
[2022-07-27] MEDS: GUAIFENESIN 600MG ER TABLET PO SCH (09:13)
[2022-07-27] MEDS: FERROUS SULFATE 325MG TABLET PO SCH ×2 (09:13→12:42)
[2022-07-27] MEDS: PANTOPRAZOLE SODIUM 40 MG/VIAL IV SCH (09:13)
[2022-07-27] MEDS: ASCORBIC ACID 500 MG TABLET PO SCH (09:13)
[2022-07-27] MEDS: PREDNISONE 20MG TABLET PO SCH (09:13)
[2022-07-27] MEDS: FOLIC ACID 1MG TABLET PO SCH (09:13)
[2022-07-27] MEDS: FUROSEMIDE 20MG/2ML VIAL IVP SCH (09:29)
[2022-07-27] MEDS ORDERED: FURO20TA4 MT (11:58)
[2022-07-27] MEDS ORDERED: FOLI-43 PO (11:58)
[2022-07-27] MEDS ORDERED: FERR-63 PO (11:58)
[2022-07-27] MEDS ORDERED: PANT40TA51 MT (11:58)
[2022-07-27] MEDS ORDERED: ASCO500T20 PO (11:58)
[2022-07-27] MEDS ORDERED: P20 MT (11:58)
[2022-07-27] MEDS ORDERED: GUAI600T44 PO (11:58)
[2022-07-27] MEDS: ACETAMINOPHEN 325MG TABLET PO PRN (15:23)
== END 2022-07-27 17:04 | disposition home health service (06) | DRG 720 ==
LOC: ER 15:44 → MICUSO 17:46 → EDBEDREQ 17:50 → EDBEDREQTM 17:50 → MICUNO 07-02 10:30 → 5EST 07-11 17:38
PROVIDERS: ADMIT Internal Medicine; ATTEND Internal Medicine
PROC: 5A1955Z Respiratory Ventilation, Greater than 96 Consecutive Hours (ICD-10-PCS; principal; 2022-07-01)
PROC: 0BH17EZ Insertion of Endotracheal Airway into Trachea, Via Natural or Artificial Opening (ICD-10-PCS; 2022-07-01)
PROC: 02HV33Z Insertion of Infusion Device into Superior Vena Cava, Percutaneous Approach (ICD-10-PCS; 2022-07-01)
PROC: B548ZZA Ultrasonography of Superior Vena Cava, Guidance (ICD-10-PCS; 2022-07-01)
PROC: 0DB78ZX Excision of Stomach, Pylorus, Via Natural or Artificial Opening Endoscopic, Diagnostic (ICD-10-PCS; 2022-07-03)
PROC: 5A09357 Assistance with Respiratory Ventilation, Less than 24 Consecutive Hours, Continuous Positive Airway Pressure (ICD-10-PCS; 2022-07-10)
PROC: 5A09557 Assistance with Respiratory Ventilation, Greater than 96 Consecutive Hours, Continuous Positive Airway Pressure (ICD-10-PCS; 2022-07-11)
PROC: 5A0955A Assistance with Respiratory Ventilation, Greater than 96 Consecutive Hours, High Flow/Velocity Cannula (ICD-10-PCS; 2022-07-19)
PROC: 5A0935A Assistance with Respiratory Ventilation, Less than 24 Consecutive Hours, High Flow/Velocity Cannula (ICD-10-PCS; 2022-07-24)
DX: A41.9 Sepsis, unspecified organism (principal); R65.21 Severe sepsis with septic shock; J18.9 Pneumonia, unspecified organism; G93.41 Metabolic encephalopathy; J96.02 Acute respiratory failure with hypercapnia; J96.01 Acute respiratory failure with hypoxia; E44.0 Moderate protein-calorie malnutrition; I50.33 Acute on chronic diastolic (congestive) heart failure; K29.01 Acute gastritis with bleeding; E87.29 Other acidosis; Z20.822 Contact with and (suspected) exposure to COVID-19; I27.20 Pulmonary hypertension, unspecified; N17.9 Acute kidney failure, unspecified; I11.0 Hypertensive heart disease with heart failure; G47.33 Obstructive sleep apnea (adult) (pediatric); D64.9 Anemia, unspecified; N39.0 Urinary tract infection, site not specified; E78.00 Pure hypercholesterolemia, unspecified; K59.00 Constipation, unspecified; E66.01 Morbid (severe) obesity due to excess calories; Z68.37 Body mass index [BMI] 37.0-37.9, adult
CPT/HCPCS: 31500; 36415; 36600; 71045; 71250; 74018; 74176; 80048; 80053; 80061; 80202; 81003; 82375; 82607; 82728; 82746; 82805; 82962; 83036; 83540; 83550; 83605; 83735; 84145; 84439; 84443; 84478; 84480; 84484; 85014; 85018; 85025; 85044; 87070; 87426; 87804; 88305; 93005; 93306; 93970; 94002; 94003; 94640; 94660; 94667; 97110; 97162; 97164; 97166; 97530; 99291; A6261; C9113; J0330; J0360; J0456; J1200; J1650; J1940; J2250; J2270; J2405; J2543; J2704; J2920; J3010; J3370; J3480; J3490; J7030; J7042; J7050; J7060; J7512; J7608; A5200